=== PATIENT | male | born 1960 | race Caucasian/White ===

== ENCOUNTER 2017-01-28 21:15 | Emergency (ER) | payer SELFPAY ==
--- NOTE | ~2017-01-28 | US140 ---
[facility] A Service of [facility] [place] RADIOLOGY TEXT RESULTS PATIENT: AARTI BARBA LOCATION: [place] : 58 UNIT #: [id number] AGE: [address]: MITCHEL LOYA APRN SEX: M ORDER DR: [id number] [facility] [address] [place], [place] [address] [id number] MR#: [id number] Acc #: [id number] NAME: AARTI BARBA : 1960 SEX: M STUDY DATE/TIME: 01/28/2017 20:48 UNIT: [facility] ROOM: STUDY DESCRIPTION: [facility] [place] [facility] [facility] [employer] [facility] Attending Physician: Mitchel Loya Aprn Ordering Physician: Mitchel Loya Aprn Primary Care Physician: Primary Care Physician No MEDICAL IMAGING REPORT This report is preliminary unless electronic signature is present EXAM Unilateral left upper extremity venous Doppler, 01/28/2017 CLINICAL HISTORY Left arm swelling and pain for 1 days. TECHNIQUE Venous ultrasound examination of the left upper extremity was performed using grayscale, spectral Doppler and color flow Doppler imaging. FINDINGS The examination is negative. There is no evidence of deep venous thrombus within the left internal jugular vein, subclavian vein, axillary vein or brachial veins. No superficial venous thrombus is seen within the cephalic or basilic veins. IMPRESSION Negative examination. No evidence of left upper extremity venous thrombosis. Dictated by... Kenn Gutierres M.D. THIS IS AN ELECTRONICALLY VERIFIED REPORT Kenn Gutierres M.D. at 01/30/2017 9:44 AM CAROLEE/khushboo TD: 01/29/2017 00:53 JOB #: [id number] MEDICAL IMAGING REPORT [facility] A Service [facility] RADIOLOGY TEXT RESULTS PATIENT: AARTI BARBA LOCATION: [facility] : 58 UNIT #: [id number] AGE: [address]: MITCHEL LOYA APRN SEX: M ORDER DR: Page 1 of 1 COPY
== END 2017-01-28 21:22 | disposition home or self-care (01) ==
LOC: CFTX 21:15
DX: S46.912A Strain of unspecified muscle, fascia and tendon at shoulder and upper arm level, left arm, initial encounter (principal); E11.9 Type 2 diabetes mellitus without complications; I10 Essential (primary) hypertension; E78.5 Hyperlipidemia, unspecified; X58.XXXA Exposure to other specified factors, initial encounter
CPT/HCPCS: 93971; 99283; 99284